=== PATIENT | female | born 1950 | race Caucasian/White ===

== ENCOUNTER → 2017-06-20 | Outpatient (CLI) | payer OTHER ==
[2016-04-21 10:48] VITALS: BP 152/74
--- NOTE | 2017-06-20 16:16 | RAD ---
HISTORY: Mid abdominal pain for several days. Study: Acute abdominal series Comparison: None. Findings: The trachea is midline. The cardiac silhouette is unremarkable. The lungs are clear without focal i nfiltrate or effusion. The bony thorax is unremarkable. Flat plate and upright evaluation of the abdomen demonstrates a nonspecific/nonobstructive bowel gas pattern with air and large amounts of stool to the level of the rectum. Surgical clips are seen overl venus the right abdomen. No obvious free air. No pathological soft tissue mass or calcification can b e observed. The bony structures are grossly intact. IMPRESSION: 1. No acute cardiopulmonary disease. 2. No evidence for acute abdominal pathology identified. Reported By:
== END ==
LOC: RAD 14:34
PROVIDERS: ATTEND Internal Medicine Gastroenterology
DX: K56.699 Other intestinal obstruction unspecified as to partial versus complete obstruction (principal)
CPT/HCPCS: 74022